=== PATIENT | male | born 1970 | race African-American/Black ===

== ENCOUNTER 2025-02-16 22:00 | Emergency (ER) | payer OTHER, MEDICAID ==
[~2025-02-16] VITALS: Ht 182.9 cm; Wt 102.0 kg
[2025-02-16 22:04] VITALS: O2SAT 100
[2025-02-16] MEDS: HYDROCODONE/ACETAMINOPHEN 5/325MG TABLET PO ONE (22:59)
[2025-02-17] MEDS ORDERED: BACL-141 MT (00:40)
[2025-02-17] MEDS ORDERED: ACET-2708 MT (00:40)
[2025-02-17] MEDS: DEXAMETHASONE 10 MG/ML VIAL IM ONE (01:59)
[2025-02-17] MEDS: KETOROLAC 30MG/ML VIAL IM ONE (01:59)
[2025-02-17 03:25] VITALS: BP 143/70; PULSE 98; RESP 20; TEMP 36.7; O2SAT 97
== END 2025-02-17 03:26 | disposition home or self-care (01) ==
LOC: ER 22:00
DX: M16.12 Unilateral primary osteoarthritis, left hip (principal); G80.9 Cerebral palsy, unspecified; F20.9 Schizophrenia, unspecified; F31.9 Bipolar disorder, unspecified
CPT/HCPCS: 99285; 73502; 96372; J1885; J1100